=== PATIENT | male | born 1950 | race Caucasian/White ===

== ENCOUNTER 2024-02-14 14:32 | Emergency (ER) | payer SELFPAY ==
[2024-02-14 14:40] VITALS: BP 74/38; PULSE 72; RESP 14; BMI 34.3
--- NOTE | 2024-02-14 14:41 | ECG_ITS ---
Test Reason : CARDIAC ARREST Blood Pressure : / mmHG Vent. Rate : 086 BPM Atrial Rate : 086 BPM P-R Int : 080 ms QRS Dur : 152 ms QT Int : 390 ms P-R-T Axes : 187 169 023 degrees QTc Int : 466 ms Junctional rhythm Right bundle branch block Anterolateral infarct , age undetermined Abnormal ECG No previous ECGs available Referred By: Harriet Bishop Electronically Signed By:Fahad Paul
--- NOTE | 2024-02-14 14:42 | ED.CPR ---
HPI - CPR General Chief Complaint: Cardiac Arrest/CPR Stated Complaint: CARDIAC ARREST DIFF BREATHING Time Seen by Provider: 02/14/24 14:40 Source: EMS Mode of arrival: EMS Limitations: other (Unresponsive) History of Present Illness ED Provider: DR. Bishop HPI narrative: 77-year-old male brought in by EMS after found unresponsive and in cardiac arrest. Patient called his daughter about 1 hour before arrival to the hospital told her that he can not breathe and short of breath then daughter called EMS, was a delayed access into the apartment for about 20 minutes for the fire department to break into the apartment, EMS found the patient in bed unresponsive in asystole, no pulse, apneic EMS estimated about 30 minutes downtime before CPR was started, patient was intubated in the field by EMS, 9 rounds of epinephrine was administrated by EMS and patient remained in asystole with no pulse. On arrival to the ED CPR was in progress, patient was intubated, initial rhythm was sinus bradycardia at 25 Bpm, no pulse, and intubated, patient was given 1 amp bicarb followed by 1 amp of D50 followed by 2 rounds of epinephrine patient had ROSC , then Patient lost pulse after few minutes CPR was restarted was given another amp of bicarb and epinephrine.then patient had ROSC and CPR was discontinued, patient continue with continuous pulse for few minutes then became bradycardic into asystole. Ultrasound at the bedside showed no cardiac activity with agonal sporadic week cardiac wall movements then into asystole at this point patient total time down at least 60 minutes I spoke with the family explain and resuscitation effort was discontinued and the case was pronounced at 15:03. Daughter mentioned that the patient was scheduled to have open heart surgery at the end of the month after he gets dental clearance. (not sure what kind of surgery patient is going to have). Case discussed with a me with declined with . By Kathy Bauman. Related Data Allergies Allergy/AdvReac Type Severity Reaction Status Date / Time Unable to Assess Allergy Verified 02/14/24 14:42 Review of Systems Review of Systems: Yes Unobtainable due to mental condition PMFSH Social History Social History Advance Directives: No Advance Directives Information Provided: No Do you have a plan to hurt others: No Plan Physical Exam Vital Signs: Vital Signs: Last Vital Signs Pulse 72 02/14/24 14:40 Resp 14 08/03/24 14:40 BP 74/38 L 02/14/24 14:40 O2 Del Method Ambu-Bag 02/14/24 14:40 BMI result Body Mass Index 34.3 Intubated, heart rate 0, blood pressure is unobtainable. General: Unresponsive no sign of trauma HEENT: No sign of trauma, pupil 4 mm fixed nonreactive bilaterally. Heart: No cardiac activity on ultrasound. Lungs: Equal bilateral air entry. Abdomen: No sign of trauma. Extremities: No deformity. Course Reevaluation(s) Reevaluation #1: Total of 60 minutes time down, patient had intermittent periods of ROSCs. Patient respond shortly after epinephrine and bicarb than go asystole, pupil 4 mm fixed dilated bilaterally. Declined by medical care administrator Time: 16:38 Medications Administered Discontinued Medications Generic Name Dose Route Start Last Admin Trade Name Freq PRN Reason Stop Dose Admin Sodium Chloride 1,000 mls @ 999 mls/hr 02/14/24 14:40 02/14/24 17:09 Ns IV 02/14/24 15:40 Not Given .[id number] ONE Medical Decision Making Differential Diagnosis Differential Diagnoses: The differential diagnosis associated with the presentation includes (Cardiac arrest) Lab Data 02/14/24 14:42 02/14/24 14:42 Labs: Lab Results 02/14/24 02/14/24 Range/Units 14:42 14:44 WBC 14.4 H (4.8-10.8) X10*3/uL RBC 3.83 L (4.60-5.80) X10*6/uL Hgb 12.2 L (14.0-18.0) g/dl Hct 40.7 L (42.0-52.0) % MCV 106.3 H (80.0-98.0) fL MCH 31.9 (27.0-33.0) pg MCHC 30.0 L (31.0-36.0) g/dl RDW 14.6 (11.0-16.0) % Plt Count 161 (160-400) X10*3/uL MPV 11.8 (9.4-12.4) fL Immature Gran % (Auto) 4.7 H (0.0-0.4) % Neut % (Auto) 45.5 (45-73) % Lymph % (Auto) 37.7 (20-40) % [place] % (Auto) 10.0 (2-11) % Eos % (Auto) 1.5 (0-4) % Baso % (Auto) 0.6 (0-2) % Lymph # (Auto) 5.4 H (1.2-4.9) X10*3/uL [place] # (Auto) 1.4 H (0.1-1.2) X10*3/uL Eos # (Auto) 0.2 (0.0-0.4) X10*3/uL Baso # (Auto) 0.1 (0.0-0.2) X10*3/uL Abs Immat Gran (auto) 0.67 H (0.00-0.03) X10*3/uL Absolute Neuts (auto) 6.5 (2.0-8.3) x10*3/uL Absolute Nucleated RBC 0.060 H (0.0-0.012) X10*3/uL Nucleated RBC % (auto) 0.4 H (0.0-0.2) /100WBC Smear Tech's Comments VERIFIED PT 15.0 H (11.1-13.3) SEC INR 1.2 H (0.9-1.1) Sodium 138 (135-145) mmol/L Potassium 5.4 H (3.3-5.1) mmol/L Chloride 111 H (96-108) mmol/L Carbon Dioxide 5 L* (22-29) mmol/L Anion Gap 27 H (12-20) BUN 12 (9-16) mg/dL Creatinine 1.19 (0.5-1.4) mg/dL Estim Creat Clear Calc 60.1 Estimated GFR 59 POC Glucose 390 H* (60-115) mg/dL Random Glucose 238 H (60-115) mg/dL Lactic Acid 13.1 H* (0.5-2.0) mmol/L Calcium 8.8 (8.4-10.2) mg/dL Total Bilirubin 0.2 (0.0-1.0) mg/dL Direct Bilirubin 0.2 (0.0-0.5) mg/dL AST 65 H (5-37) U/L ALT 38 (0-40) U/L Alkaline Phosphatase 115 (39-117) U/L Troponin I High Sens 52.1 H (<3.5-35.0) ng/L B-Natriuretic Peptide 513 H (<100) pg/mL Total Protein 5.6 L (6.5-8.0) g/dL Albumin 2.5 L (3.5-5.0) g/dL Lipase 28 (8-78) U/L Discharge Plan Discharge Clinical Impression: Cardiac arrest Patient Disposition: Interventions: Organ Donor Nursing Doc/Post Mortem care Last Done: 02/14/24 17:21 Discharge Date/Time: 02/14/24 17:24 Date/Time: 02/14/24 15:03
[2024-02-14 14:48] LABS: Basophils Absolute Auto 0.1 X10*3/uL (0.0-0.2); Basophils Percent Auto 0.6 % (0-2); Eosinophils Absolute Auto 0.2 X10*3/uL (0.0-0.4); Eosinophils Percent Auto 1.5 % (0-4); Hematocrit 40.7 % (42.0-52.0); Hemoglobin 12.2 g/dl (14.0-18.0); Imm Gran Abs Auto 0.67 X10*3/uL (0.00-0.03); Imm Gran Pct Auto 4.7 % (0.0-0.4); Lymphocytes Absolute Auto 5.4 X10*3/uL (1.2-4.9); Lymphocytes Percent Auto 37.7 % (20-40); MANUAL DIFF FLAG SCAN; Mean Corpuscular Hemoglobin 31.9 pg (27.0-33.0); Mean Corpuscular Volume 106.3 fL (80.0-98.0); Mean Platelet Volume 11.8 fL (9.4-12.4); Monocytes Absolute Auto 1.4 X10*3/uL (0.1-1.2); NRBC Pct Auto 0.4 /100WBC (0.0-0.2); Neutrophils Absolute Auto 6.5 x10*3/uL (2.0-8.3); Neutrophils Percent Auto 45.5 % (45-73); Platelet Count 161 X10*3/uL (160-400); Red Cell Distribution Width 14.6 % (11.0-16.0); SCAN SMEAR FLAG 1; White Blood Count 14.4 X10*3/uL (4.8-10.8)
[2024-02-14 14:49] LABS: Red Blood Count 3.83 X10*6/uL (4.60-5.80)
[2024-02-14 14:56] LABS: INTERNATIONAL NORM RATIO 1.2 (0.9-1.1)
[2024-02-14 15:13] LABS: Troponin-I High Sensitivity 52.1 ng/L (<3.5-35.0)
[2024-02-14 15:14] LABS: Lactic Acid 13.1 mmol/L (0.5-2.0)
[2024-02-14 15:15] LABS: Alanine Aminotransferase 38 U/L (0-40); Albumin Level 2.5 g/dL (3.5-5.0); Alkaline Phosphatase 115 U/L (39-117); Anion Gap 27 (12-20); Aspartate Amino Transferase 65 U/L (5-37); Bilirubin Direct 0.2 mg/dL (0.0-0.5); Bilirubin Total 0.2 mg/dL (0.0-1.0); Blood Urea Nitrogen 12 mg/dL (9-16); Calcium 8.8 mg/dL (8.4-10.2); Carbon Dioxide 5 mmol/L (22-29); Chloride 111 mmol/L (96-108); Creatinine Clr Calc Pharmacy 60.1; Estimated Glomerular Filt Rate 59; Glucose Random 238 mg/dL (60-115); Lipase 28 U/L (8-78); Potassium 5.4 mmol/L (3.3-5.1); Sodium 138 mmol/L (135-145); Total Protein 5.6 g/dL (6.5-8.0)
[2024-02-14 15:17] LABS: Glucose, Whole Blood 390 mg/dL (60-115)
--- NOTE | 2024-02-14 15:48 | MHC.EDTECH ---
[employer] Operator called @[phone], Passed call to after demographics were given by this [place]
--- NOTE | 2024-02-14 16:15 | PC.NURSE ---
[facility] contacted. Ref # [id number]
[2024-02-14 16:32] LABS: SLIDE REVIEW VERIFIED
[2024-02-14 16:46] LABS: Reflex Lactate? Lactic Acid Added
[2024-02-14 16:58] LABS: B Type Natriuretic Peptide 513 pg/mL (<100)
== END 2024-02-14 17:24 | disposition expired ==
PROVIDERS: Emergency Provider Emergency Medicine
DX: I46.9 Cardiac arrest, cause unspecified (principal); R06.02 Shortness of breath
CPT/HCPCS: 36415; 80048; 80076; 82947; 83605; 83690; 83880; 84484; 85025; 85610; 93005; 99283; 99285; J0171

== ENCOUNTER → 2024-02-14 14:41 | Outpatient (BNV) | payer SELFPAY | PROVIDERS: Emergency Provider Emergency Medicine; Visit Provider Internal Medicine Cardiovascular Disease | DX: R94.31 Abnormal electrocardiogram [ECG] [EKG] (principal) | CPT/HCPCS: 93010 ==